=== PATIENT | female | born 1995 | race Caucasian/White ===

== ENCOUNTER 2017-04-05 00:08 | Emergency (ER) | payer BC ==
[~2017-04-05] VITALS: Wt 86.0 kg
[~2017-04-05 00:08] MED LIST: IBUP-1542 PO
--- NOTE | 2017-04-05 01:26 | ERD ---
ER Documentation Chief Complaint Date/Time DATE: 04/05/17 TIME: 01:09 Chief Complaint Redness in the palm and thigh with itchiness HPI This 21-year-old female presents to emergency department today for erythema and pruritus after eating a big Mac and a chocolate Sunday with knots. Patient reports she is eating these items in the past without any adverse reaction, she does not have a known nut allergy. Patient states her right hand is red, was more swollen than at present time. Reports a scattered rash on thighs and arms. Patient denies any lip swelling, tongue swelling, wheezing, difficulty swallowing or shortness of breath. ROS All systems reviewed and are negative except as per history of present illness. Medications Home Meds Active Scripts Ibuprofen* (Motrin*) 600 Mg Tab, 600 MG PO Q6H Y for PAIN AND OR ELEVATED TEMP, #30 TAB Prov:SHAREE YO PA-C 08/08/16 Allergies Allergies: Coded Allergies: No Known Allergy (Unverified , 08/08/16) PMhx/Soc History of Surgery: No Anesthesia Reaction: No Hx Neurological Disorder: No Hx Respiratory Disorders: Yes (POSSIBLY ASTHMA) Hx Cardiac Disorders: No Hx Psychiatric Problems: No Hx Miscellaneous Medical Probl: No Hx Alcohol Use: No Hx Substance Use: No Hx Tobacco Use: No Smoking Status: Never smoker Physical Exam Vitals Vital Signs Date Time Temp Pulse Resp B/P Pulse Ox O2 Delivery O2 Flow Rate FiO2 04/05/17 00:21 97.9 69 20 130/81 97 Physical Exam Const: Age-appropriate, well-nourished, well-hydrated, no acute distress Head: Atraumatic Eyes: Normal Conjunctiva, PERRLA, EOMI ENT: Normal External Ears, Nose and Mouth. Neck: Resp: Respirations even and unlabored, no respiratory distress Cardio: Abd: Soft, non tender, non distended. Skin: No petechiae or rashes Back: No midline or flank tenderness Ext: No cyanosis, or edema Neur: Awake and alert Psych: Normal Mood and Affect Procedures/MDM 21-year-old female presents to emergency department for evaluation of pruritus and rash after eating a big Mac, a chocolate Sunday with peanuts. Patient has no known food allergy, denies any anaphylactic symptoms such as compromised airway difficulty swallowing, any wheezing, shortness of breath, lip swelling, tongue swelling. Anaphylaxis is not likely at this time patient will be treated with Benadryl,and Pepcid will be discharged home with instructions to continue Benadryl every 6 hours as needed pruritus, avoid peanuts until further evaluation by primary care physician. Return to emergency department for any worsening of symptoms. Increase pruritus or rash, shortness of breath, lip swelling tongue swelling, difficulty swallowing. I feel the patient is stable for discharge at this time with outpatient management by primary care physician. I have discussed results, examination findings, the treatment plan with the patient and family present prior to discharge. Indications for emergent reevaluation, side effects of medication were also discussed. All questions were answered. Patient verbalizes understanding and agrees with plan of care. Departure Diagnosis: Primary Impression: Food allergic skin reaction Condition: Good Patient Instructions: Food Allergy Additional Instructions: Thank you for for coming to [facility] for your care today. Please ask your nurse or provider if you have questions about your care today and do not leave until all your questions have been answered. Please use any medications given as directed and follow-up with your doctor (or the doctor you were referred to) in the next 2-3 days. If you do not have a primary care doctor you may follow up at the [facility] (listed below). You may also use motrin and tylenol as needed for fever and/or pain unless instructed otherwise by your provider or nurse. Indications for more urgent follow-up have been discussed, but you may return to the Emergency Department at ANY time for any worrisome or worsening symptoms. If you have abdominal pain, please know that no test or exam you received is perfect and you should follow up within 8 hours for continued pain. If you had any imaging studies today, such as an X-Ray or CT Scan, these studies will be reviewed later by a radiologist. You will be called if there are important findings that were not identified today, so make sure the contact information you provided at registration is correct. If you received any narcotic pain control medicine today, such as Vicodin, Morphine or Dilaudid, your coordination and judgment may be affected for a number of hours. Please do not drive or operate heavy machinery, and you may want someone to assist you at home. If you were given a prescription for narcotic medication, be aware that it is very addictive- use sparingly and only if necessary. FABIOLA COMBS Apr 05, 2017:24
[2017-04-05] MEDS ORDERED: BEN25 PO (02:09)
[2017-04-05] MEDS ORDERED: FAMOTIDINE 20 MG TAB PO ONE (02:30)
[2017-04-05] MEDS ORDERED: DIPHENHYDRAMINE 25 MG CAP PO ONE (02:30)
== END 2017-04-05 02:29 | disposition home or self-care (01) ==
LOC: FTE 00:08
DX: L53.9 Erythematous condition, unspecified (principal); T78.1XXA Other adverse food reactions, not elsewhere classified, initial encounter
CPT/HCPCS: Z7502; Z7610; 99283